=== PATIENT | female | born 1955 | race Caucasian/White ===

== ENCOUNTER 2022-02-05 08:58 | Observation (INO) | payer OTHER ==
[2022-02-01 11:51] LABS: BASOPHILS % (AUTO) 1.8 % (0.0-5.0); EOSINOPHILS % (AUTO) 9.4 % (0.0-8.0); HEMATOCRIT 42.8 % (42-54); LYMPHOCYTES % (AUTO) 27.8 % (21.0-51.0); MEAN CORPUSCULAR HEMOGLOBIN 32.2 pg (27.0-33.0); MEAN CORPUSCULAR HGB CONC 32.7 g/dL (32.0-36.0); MEAN CORPUSCULAR VOLUME 98.4 fL (79-99); MONOCYTES % (AUTO) 10.2 % (3.0-13.0); NEUTROPHILS % (AUTO) 50.4 % (40.0-77.0); PLATELET COUNT (AUTO) 263 K/uL (130-400); RED BLOOD CELL COUNT(AUTO) 4.35 MIL/uL (4.50-6.20); RED CELL DISTRIBUTION WIDTH 12.2 % (11.0-15.5); WHITE BLOOD COUNT (AUTO) 7.2 K/uL (4.8-10.8)
[2022-02-01 12:04] LABS: INR 0.96 (0.85-1.15); PROTHROMBIN TIME 10.5 SEC (9.6-11.6)
[2022-02-01 12:05] LABS: CREATININE 0.9 mg/dL (0.5-1.5); POTASSIUM 3.8 mmol/L (3.5-5.1)
[2022-02-01 12:06] LABS: PARTIAL THROMBOPLASTIN TIME 29.3 SEC (26.3-35.5)
[2022-02-04 08:50] VITALS: BP 149/76
[~2022-02-05] VITALS: Ht 152.4 cm; Wt 74.8 kg
[2022-02-05] VITALS (20 sets, daily range): BP systolic 120–161; BP diastolic 74–98
[~2022-02-05 08:58] MED LIST: CALC1TAB2 PO; CEFAZOLIN SODIUM 1 GM VIAL IVP SCH; LOSA100T58 PO; MULT-1367 PO
[2022-02-05] MEDS ORDERED: LACTATED RINGERS 1000ML 1,000 ML IV ONE (09:34)
[2022-02-05] MEDS ORDERED: DULO60CA64 PO (10:18)
[2022-02-05] MEDS ORDERED: SUCCINYLCHOLINE CHLORIDE 20 MG/ML 10 ML VIAL ONE ×2 (11:58→13:13)
[2022-02-05] MEDS ORDERED: LIDOCAINE PF 100MG/5ML (2%) SYRINGE 5ML ONE ×2 (11:58→13:13)
[2022-02-05] MEDS ORDERED: MIDAZOLAM HCL 1 MG/ML 2ML VIAL ONE ×2 (11:58→13:14)
[2022-02-05] MEDS ORDERED: PROPOFOL 10 MG/ML 20ML VIAL IV ONE ×2 (11:58→13:13)
[2022-02-05] MEDS ORDERED: ROCURONIUM 10MG/1ML SYR 10 MG/ML ML ONE ×3 (11:59→16:05)
[2022-02-05] MEDS ORDERED: FENTANYL CITRATE PF 50 MCG/1 ML 2ML VIAL ONE ×5 (11:59→17:02)
[2022-02-05] MEDS ORDERED: ROPIVACAINE 0.5% 5MG/ML 30ML IJ ONE ×3 (12:18→13:16)
[2022-02-05] MEDS ORDERED: NEOSTIGMINE 5MG/5ML SYR IV ONE ×2 (13:13→17:02)
[2022-02-05] MEDS ORDERED: DEXAMETHASONE SOD PHOSPHATE 10MG/ML 1ML VIAL ONE (13:13)
[2022-02-05] MEDS ORDERED: SUCCINYLCHOLINE 200MG/10ML SYR ONE (13:13)
[2022-02-05] MEDS ORDERED: ONDANSETRON 4MG INJ ONE (13:13)
[2022-02-05] MEDS: TRANEXAMIC ACID 1000MG/10ML ONE ×2 (14:34→16:18)
[2022-02-05] MEDS ORDERED: PROPOFOL 1000 MG/100 ML 100 ML IV ONE ×2 (14:49→16:27)
[2022-02-05] MEDS: CEFAZOLIN SODIUM 1 GM VIAL IVP SCH ×2 (15:02→20:18)
[2022-02-05] MEDS ORDERED: HYDROCODONE/ACETAMINOPHEN 5/325 MG TAB PO PRN (15:30)
[2022-02-05] MEDS ORDERED: MORPHINE 4 MG SYG IVP PRN (15:30)
[2022-02-05] MEDS ORDERED: HYDROCODONE/ACETAMINOPHEN 10/325 MG TAB PO PRN (15:30)
[2022-02-05] MEDS ORDERED: NON-FORMULARY MEDICATION 1 EACH (Duloxetine HCl 60 MG) PO SCH (15:30)
[2022-02-05] MEDS ORDERED: ONDANSETRON 4MG INJ IVP PRN (15:30)
[2022-02-05] MEDS: ACETAMINOPHEN 500 MG TABLET PO SCH ×2 (15:30→20:18)
[2022-02-05] MEDS ORDERED: [UNRECOGNIZED DRUG - REMARK] MISC SCH (15:30)
[2022-02-05] MEDS ORDERED: 0.9%NACL 1000ML 1,000 ML IV SCH (15:30)
[2022-02-05] MEDS: ASPIRIN 81 MG EC TAB PO SCH (20:17)
[2022-02-05] MEDS: TRAMADOL HCL 50 MG TABLET PO SCH (20:18)
[2022-02-05] MEDS: CELECOXIB 200 MG CAP PO SCH (20:19)
[2022-02-05] MEDS: FAMOTIDINE 20MG TAB PO SCH (20:19)
[2022-02-06 03:45] LABS: HEMATOCRIT 38.7 % (36-48); MEAN CORPUSCULAR HEMOGLOBIN 31.8 pg (27.0-33.0); MEAN CORPUSCULAR HGB CONC 32.8 g/dL (32.0-36.0); RED BLOOD CELL COUNT(AUTO) 3.99 MIL/uL (4.00-5.50); RED CELL DISTRIBUTION WIDTH 12.1 % (11.0-15.5); WHITE BLOOD COUNT (AUTO) 10.5 K/uL (4.8-10.8)
[2022-02-06 03:53] LABS: CREATININE 0.8 mg/dL (0.5-1.5); POTASSIUM 3.7 mmol/L (3.5-5.1)
[2022-02-06 04:04] VITALS: BP 120/69
[2022-02-06] MEDS: TRAMADOL HCL 50 MG TABLET PO SCH ×4 (04:11→11:24)
[2022-02-06] MEDS: CEFAZOLIN SODIUM 1 GM VIAL IVP SCH (04:11)
[2022-02-06] MEDS: ACETAMINOPHEN 500 MG TABLET PO SCH (06:31)
[2022-02-06 07:05] VITALS: BP 114/68
[2022-02-06] MEDS ORDERED: POLYETHYLENE GLYCOL 3350 17 GM POWD.PACK PO SCH (09:00)
[2022-02-06] MEDS ORDERED: LOSARTAN 100 MG TABLET PO SCH (09:00)
[2022-02-06] MEDS ORDERED: MULTIVITAMIN TABLET PO SCH (09:00)
[2022-02-06] MEDS: ASPIRIN 81 MG EC TAB PO SCH (09:06)
[2022-02-06] MEDS: CELECOXIB 200 MG CAP PO SCH (09:06)
[2022-02-06] MEDS: FAMOTIDINE 20MG TAB PO SCH (09:06)
[2022-02-06 10:50] VITALS: BP 109/58
[2022-02-08] MEDS ORDERED: BISACODYL 10 MG SUPP.RECT RC PRN (15:30)
== END 2022-02-06 16:45 | disposition home or self-care (01) ==
LOC: DAH 08:58 → EDSEX 08:58 → DAH 15:10 → DAHIP 15:10 → 4AH 18:21
PROVIDERS: ADMIT Orthopaedic Surgery; ATTEND Orthopaedic Surgery
DX: M17.11 Unilateral primary osteoarthritis, right knee (principal); Z20.822 Contact with and (suspected) exposure to COVID-19; E66.9 Obesity, unspecified; M24.561 Contracture, right knee; Z79.899 Other long term (current) drug therapy; Z68.32 Body mass index [BMI] 32.0-32.9, adult; Z98.890 Other specified postprocedural states
CPT/HCPCS: 27447; S2900; 36415; 64445; 64447; 64450; 76942; 80048; 85025; 85027; 85610; 85730; 87635; 87641; 93005; 96374; 96376; 97039; A4344; C9803; G0378; G0379; J0330; J0690; J1100; J2001; J2250; J2405; J2704; J2710; J2795; J3010; J3490; J7120